=== PATIENT | female | born 1980 | race Caucasian/White ===

== ENCOUNTER 2016-09-03 04:20 | Outpatient (CLI) | payer MEDICAID ==
[2016-09-03 04:35] VITALS: BP 122/80
[2016-09-03] MEDS ORDERED: VISTARIL PO ONE (08:00)
== END 2016-09-03 07:45 | disposition home or self-care (01) ==
LOC: TRG 04:20
PROVIDERS: ATTEND Obstetrics & Gynecology
DX: O47.1 False labor at or after 37 completed weeks of gestation (principal); Z3A.39 39 weeks gestation of pregnancy
CPT/HCPCS: 59025; Q0177

== ENCOUNTER 2016-09-03 14:18 | Outpatient (CLI) | payer MEDICAID ==
[2016-09-03 14:39] VITALS: BP 113/73
== END 2016-09-03 15:00 | disposition home or self-care (01) ==
LOC: TRG 14:18
PROVIDERS: ATTEND Obstetrics & Gynecology
DX: O47.1 False labor at or after 37 completed weeks of gestation (principal); Z3A.39 39 weeks gestation of pregnancy
CPT/HCPCS: 59025; Q0177

== ENCOUNTER 2016-10-19 11:25 | Day surgery (SDC) | payer MEDICAID ==
--- NOTE | 2016-10-17 21:50 | History and Physical Report ---
History of Present Illness Date of examination: 10/16/16 Chief complaint: desires permanent sterilization History of present illness: Pt is a 35 year old female who presents for surgical sterilization. She is aware of long-acting reversible contraceptives but she desires to proceed. Past History Past Medical History: no pertinent history Past Surgical History: no surgical history DIGITAL COMPUTER OPERATOR History: herpes Family/Genetic History: diabetes Social history: no significant social history - Obstetrical History : 5 Medications and Allergies Allergies Allergy/AdvReac Type Severity Reaction Status Date / Time No Known Allergies Allergy Verified 09/03/16 04:55 Review of Systems All systems: negative - Physical Exam Breasts: Positive: deferred Cardiovascular: Regular rate Lungs: Positive: Clear to auscultation Abdomen: Positive: soft Uterus: Positive: normal size Extremities: Positive: normal Results All other labs normal. Assessment and Plan A: Multiparous desires permanent sterilization P: Proceed with laparoscopic tubal ligation and other indicated procedures.
[~2016-10-19 11:25] MED LIST: ANCEF/STERILE WATER 2 GM/20 ML 2 GM/20 ML SYRINGE IV NR
[2016-10-19] MEDS ORDERED: MARCAINE 0.5% 30 ML INFILTRATI ONE (12:05)
[2016-10-19] MEDS ORDERED: DIPRIVAN 10 MG/ML IV ONE (12:14)
[2016-10-19] MEDS ORDERED: SUBLIMAZE ONE (12:15)
[2016-10-19 12:20] LABS: Hematocrit 40.3 % (30.3-42.9); Hemoglobin 13.5 gm/dl (10.1-14.3); Mean Corpuscular HGB Conc 34 % (30-34); Mean Corpuscular Hemoglobin 27 pg (28-32); Mean Corpuscular Volume 81 fl (79-97); Platelet Count 201 K/mm3 (140-440); Red Blood Count 4.98 M/mm3 (3.65-5.03); Red Cell Distribution Width 15.4 % (13.2-15.2); White Blood Count 5.8 K/mm3 (4.5-11.0)
--- NOTE | 2016-10-19 12:46 | Anesthesia Day of Surgery ---
Anesthesia Day of Surgery - Day of Surgery Patient Examined: Yes Patient H&P Reviewed: Yes Patient is NPO: Yes
--- NOTE | 2016-10-19 12:46 | Anesthesia Consultation ---
Anesthesia Consult and Med Hx Date of service: 10/19/16 - Airway Anesthetic Teeth Evaluation: Good ROM Head & Neck: Adequate Mental/Hyoid Distance: Adequate Mallampati Class: Class II Intubation Access Assessment: Probably Good - Pulmonary Exam CTA: Yes - Cardiac Exam Cardiac Exam: RRR - Pre-Operative Health Status ASA Pre-Surgery Classification: ASA1 Proposed Anesthetic Plan: General - Pulmonary Hx Asthma: No - Cardiovascular System Hx Hypertension: No - Central Nervous System Hx Seizures: No Hx Psychiatric Problems: No - Endocrine Hx Renal Disease: No Hx Hypothyroidism: No Hx Hyperthyroidism: No - Hematic Hx Anemia: No Hx Sickle Cell Disease: No - Other Systems Hx Alcohol Use: No Hx Cancer: No
[2016-10-19] MEDS ORDERED: VERSED IV NR (13:00)
[2016-10-19] MEDS ORDERED: NACL 0.9% 1000 ML 1,000 ML IV SCH (13:00)
[2016-10-19] MEDS ORDERED: PEPCID PO NR (13:00)
[2016-10-19] MEDS ORDERED: DECADRON ONE (13:19)
[2016-10-19] MEDS ORDERED: ZOFRAN ONE ×2 (13:19→15:23)
[2016-10-19] MEDS ORDERED: MARCAINE 0.5% INFILTRATI ONE ×2 (13:21)
[2016-10-19] MEDS ORDERED: NACL 0.9% IR ONE (13:21)
[2016-10-19] MEDS ORDERED: ZEMURON IV ONE (13:27)
[2016-10-19] MEDS ORDERED: XYLOCAINE MPF 2% ONE (13:27)
[2016-10-19] MEDS ORDERED: QUELICIN ONE (13:27)
[2016-10-19] MEDS ORDERED: ROBINUL ONE (13:35)
[2016-10-19] MEDS ORDERED: BLOXIVERZ ONE (13:35)
[2016-10-19] MEDS ORDERED: SILVER NITRATE TP ONE ×2 (14:09→14:18)
--- NOTE | 2016-10-19 14:33 | Post Operative Note ---
Date of procedure: 10/19/16 Pre-op diagnosis: Multiparity desrires sterilization Post-op diagnosis: other (Same 2) Surgically absent right ovary and fallopian tube) Findings: 1) Small anteverted uterus 2) Surgically absent right ovary and fallopian tube 3) Normal appearing left ovary and fallopian tube 4) Omental adhesions to the parietal peritoneum obscuring view of the pelvis Procedure: 1) Laparoscopic left tubal ligation via Filshie Clip method 2) Lysis of omental adhesions Anesthesia: GETA Surgeon: MALLY VALVERDE Estimated blood loss: minimal (25 mL) Pathology: none Condition: stable
--- NOTE | 2016-10-19 14:34 | Operative Report ---
Operative Report Operative Report: Date of procedure: October 19, 2016 Preoperative diagnosis: 1) Multiparity desires permanent sterilization Postoperative diagnosis: 1) Same 2) Omental Adhesions Procedure: 1) Laparoscopic left tubal ligation via Filshie Clip Method 2) Lysis of Omental Adhesions Surgeon: Dodie Olvera M.D. Anesthesia: General endotracheal anesthesia Findings: 1) Small anteverted uterus 2) Surgically absent right ovary and fallopian tube 3) Normal appearing left ovary and fallopian tube 4) Omental adhesions to the parietal peritoneum obscuring view of the pelvis Estimated blood loss: 25 mL IV fluid: 500 mL Urine output: 75 mL; clear prior to the procedure Specimens: None Complications: None. Counts correct 2 Disposition: Stable to PACU Indications for procedure: Patient is a 35 year-old female 6 para [id number] who desires permanent sterilization. She is aware of long-acting reversible contraceptives and desires to proceed. Operation in detail: After the risks, benefits, alternatives and complications of the procedure were explained to the patient, she gave informed consent for the procedure. She was subsequently taken to the operating room with her IV noted to be running and placed in the dorsal supine position with sequential compression devices functioning. General endotracheal anesthesia was then induced without difficulty. An exam under anesthesia was then performed yielding a small anteverted uterus. The patient was then placed in the dorsal lithotomy position and prepped and draped in normal sterile fashion. A timeout was then performed. The bladder was then drained of urine yielding 100 mL of clear urine. An open sided speculum was placed into the vagina for visualization of the cervix. A single-tooth tenaculum was placed on the anterior lip of the cervix for traction. The uterus was then sounded to 9 cm. A [employer] uterine manipulator was then placed. The single-tooth tenaculum and speculum were then removed from the vagina. The surgeon's gloves were then changed. Attention was then turned to entry into the abdominal cavity. A 5 mm infraumbilical incision was made with an 11 blade. Towel clips were used to elevate the skin on either side of the incision. A Veres needle was placed into the peritoneal cavity at a straight angle, confirmed with a saline drop test. The abdomen was then insufflated with CO2 gas to a pressure of 15 mmHg. A 5 mm Visiport trocar was then placed into the abdomen. At this time, anatomic survey reveals omental adhesions obscuring view of the pelvis. A second trocar site was created in the LLQ 8 cm away from the umbilicus. A 5 mm trocar was then placed into the abdomen under direct visualization. The patient was replaced in Trendelenburg position. A 5 mm Ligasure device was used to lyse the omental adhesions across the pelvis. Additional adhesions in the right adnexae were lysed with the Ligasure device and the uterus is elevated out of the pelvis. At this time, it is noted that the right ovary and right fallopian tube were surgically absent. The left fallopian tube was followed to the fimbriae. The 5 mm trocar in the LLQ was removed and replaced with an 8 mm trocar. Two Filshie clips were then placed across the left fallopian tube in the ampullary region. At this time, all instruments were removed from the abdominal cavity. The pneumoperitoneum was released. A Valsalva maneuver was performed. The incisions were then infiltrated with quarter percent Marcaine. The incisions were then reapproximated with 4-0 Monocryl in a subcuticular fashion. Each incision was then covered with Steri-Strips, telfa and a tegaderm. All instruments were then removed from the vagina and hemostasis was noted. At this time the procedure was ended. The patient was replaced into the dorsal supine position and extubated without difficulty. She was subsequently taken to the PACU in stable condition. All instrument, needle and lap counts were correct 2.
--- NOTE | 2016-10-19 14:37 | Short Stay Summary ---
Short Stay Documentation Date of service: 10/19/16 - History H&P: dictated Social history: no significant social history - Allergies and Medications Current Medications: Allergies No Known Allergies Allergy (Verified 10/18/16 10:23) Home Medications Medication Instructions Recorded Confirmed Last Taken Type Ibuprofen [Motrin] 800 mg PO Q8HR PRN #30 tablet 10/19/16 Unknown Rx oxyCODONE /ACETAMINOPHEN [Percocet 1 tab PO Q6HR PRN #30 tablet 10/19/16 Unknown Rx 5/325] Active Medications Famotidine (Pepcid) 20 mg PO PREOP NR Stop: 10/19/16 23:59 Last Admin: 10/19/16 12:20 Dose: 20 mg Cefazolin Sodium (Ancef/Sterile Water 2 Gm/20 Ml) 2 gm in 20 mls @ 80 mls/hr IV PREOP NR PRN Reason: Protocol Stop: 10/19/16 23:59 Sodium Chloride (Nacl 0.9% 1000 Ml) 1,000 mls @ 75 mls/hr IV DIRECT STEVE Last Admin: 10/19/16 12:26 Dose: 75 mls/hr Midazolam HCl (Versed) 2 mg IV PREOP NR Stop: 10/19/16 23:59 Last Admin: 10/19/16 12:52 Dose: 2 mg - Physical exam Breasts: deferred - Brief post op/procedure progress note Date of procedure: 10/19/16 Pre-op diagnosis: Multiparity Desires Permanent Sterilization Post-op diagnosis: other (Multiparity Desires Permanent Sterilization, Omental adhesions) Procedure: 1) Laparoscopic left tubal ligation via Filshie Clip method 2) Lysis of Omental Adhesions Anesthesia: GETA Findings: 1) Small anteverted uterus 2) Surgically absent right ovary and fallopian tube 3) Normal appearing left ovary and fallopian tube 4) Omental adhesions to the parietal peritoneum obscuring view of the pelvis Surgeon: MALLY OLVERA Estimated blood loss: minimal (25 mL) Pathology: none Condition: stable - Hospital course Hospital course: Pt underwent laparoscopic left tubal ligation via Filshie clip and lysis of omental adhesions which she tolerated well. She was observed in the PACU until she met discharge criteria. She will follow up in 2 weeks for incision check. - Disposition Condition at discharge: Good Disposition: DC- TO HOME OR SELFCARE - Discharge Diagnoses (1) Encounter for sterilization Status: Acute Short Stay Discharge Plan Activity: other (Nothing in vagina x 4 weeks ) Weight Bearing Status: Weight Bear as Tolerated Diet: regular Wound: remove dressing ( day 2 after surgery ) Additional Instructions: ACTIVITY: NOTHING IN VAGINA FOR NEXT 4 WEEKS NO SEXUAL INTERCOURSE NO TAMPONS NO TUB BATHS . DIET :REGULAR. WOUND : OK TO REMOVE DRESSING AFTER 2 DAYS. WEAR ABDOMINAL BINDER OR FIRM GIRDLE UNTIL YOUR NEXT VISIT WITH DR López OLVERA . APPOINTMENT: DR OLVERA WANTS TO SEE YOU ON 11/02/16 CALL FOR APPOINTMENT AND FOR ANY QUESTIONS OR CONCERNS RELATED TO YOUR PROCEDURE. PRESCRIPTIONS : GIVEN FOR PAIN MOTRIN AND PERCOCET TAKE DIRECTED. YOU WERE MEDICATED WITH 1 MOTRIN BY MOUTH AT 3:45 PM OK TO REPEAT MOTRIN IN 8 HOURS Follow up with: MALLY OLVERA MD [Staff Physician] - 11/02/16 (incision check with Dr Olvera ) Forms: [facility] DC Inst. Prescriptions: Ibuprofen [Motrin] 800 mg PO Q8HR PRN #30 tablet PRN Reason: Pain oxyCODONE /ACETAMINOPHEN [Percocet 5/325] 1 tab PO Q6HR PRN #30 tablet PRN Reason: Pain
[2016-10-19] MEDS ORDERED: PERCOCET 5/325 PO PRN (15:16)
[2016-10-19] MEDS ORDERED: MOTRIN PO PRN (15:16)
[2016-10-19] MEDS ORDERED: ZOFRAN IV PRN (15:20)
[2016-10-19] MEDS: DILAUDID IV PRN ×2 (15:20→15:40)
[2016-10-19] MEDS ORDERED: DILAUDID ONE (15:22)
[2016-10-19] MEDS ORDERED: TORADOL IV PRN (16:30)
[2016-10-19 17:14] VITALS: BP 135/86
== END 2016-10-19 16:50 | disposition home or self-care (01) ==
LOC: OR 11:25
PROVIDERS: ATTEND Obstetrics & Gynecology
DX: Z30.2 Encounter for sterilization (principal); N85.4 Malposition of uterus; N73.6 Female pelvic peritoneal adhesions (postinfective); Z83.3 Family history of diabetes mellitus
CPT/HCPCS: 36415; 58671; 81025; 85027; 86850; 86900; 86901; J0330; J0690; J1100; J1170; J1885; J2250; J2405; J2704; J2710; J3010; J7030